=== PATIENT | female | born 1970 | race Two or more races ===

== ENCOUNTER 2018-07-10 06:08 | Observation (INO) | payer MEDICAID ==
[~2018-07-10] VITALS: Ht 157.5 cm; Wt 85.6 kg
[2018-07-10] MEDS ORDERED: IBUPROFEN (06:15)
[2018-07-10] MEDS ORDERED: TYLENOL (06:15)
[2018-07-10] MEDS ORDERED: GABA300C10 PO (06:15)
[2018-07-10] MEDS ORDERED: PROMETHAZINE 25 MG/ML, 1ML IM ONE (06:30)
[2018-07-10] MEDS ORDERED: HYDROmorphone 2 MG/ML, 1ML IV ONE (06:30)
[2018-07-10] MEDS ORDERED: PROMETHAZINE 25 MG/ML, 1ML ONE (06:41)
[2018-07-10] MEDS ORDERED: HYDROmorphone 2 MG/ML, 1ML ONE (06:41)
[2018-07-10 06:48] LABS: BASOPHILS # (AUTO) 0.05 x10^3/uL (0-0.1); BASOPHILS % (AUTO) 1 % (0-1); EOSINOPHILS # (AUTO) 0.03 x10^3/uL (0-0.4); EOSINOPHILS % (AUTO) 0 % (1-7); LYMPHOCYTES # (AUTO) 1.98 x10^3/uL (1-3.4); LYMPHOCYTES % (AUTO) 21 % (22-44); MD NO; MEAN CORPUSCULAR HEMOGLOBIN 29.1 pg (27.0-34.8); MEAN CORPUSCULAR HGB CONC 33.7 g/dL (32.4-35.8); MEAN CORPUSCULAR VOLUME 86.6 fL (80-100); MEAN PLATELET VOLUME 9.2 fL (7.4-10.4); MONOCYTES # (AUTO) 0.38 x10^3/uL (0.2-0.8); MONOCYTES % (AUTO) 4 % (2-9); NEUTROPHILS # (AUTO) 6.86 x10^3/uL (1.8-6.8); NEUTROPHILS % (AUTO) 74 % (42-75); PLATELET COUNT 222 x10^3/uL (130-400); RED CELL DISTRIBUTION WIDTH 12.9 % (9.6-15.2)
[2018-07-10 06:59] LABS: ANION GAP 9 mmol/L (5-15); CALCIUM 8.7 mg/dL (8.5-10.1); CHLORIDE 109 mmol/L (98-107); CREATININE 0.75 mg/dL (0.55-1.02)
[2018-07-10] MEDS ORDERED: KETOROLAC 30 MG/1 ML IVPush ONE (08:30)
[2018-07-10] MEDS ORDERED: SODIUM CHLORIDE 0.9% 1,000ML IVBOLUS ONE (08:30)
[2018-07-10] MEDS ORDERED: KETOROLAC 30 MG/1 ML ONE (08:31)
[2018-07-10] MEDS ORDERED: MECLIZINE CHEWABLE 25 MG TAB ONE (10:38)
[2018-07-10] MEDS ORDERED: MECLIZINE CHEWABLE 25 MG TAB PO ONE (11:00)
[2018-07-10] MEDS ORDERED: ONDANSETRON 2MG/ML, 2ML IVPush PRN (13:00)
[2018-07-10] MEDS ORDERED: ENALAPRILAT 1.25 MG/ML, 2ML IVPush PRN (13:00)
[2018-07-10] MEDS ORDERED: BUTALB/APAP/CAFFEINE 50MG/325MG/40MG PO PRN (13:00)
[2018-07-10 13:45] LABS: HCT (SEDRATE) 41.5 % (34.6-47.8)
[2018-07-10] MEDS ORDERED: GADOBUTROL 10 MMOL/10 ML PFS ONE (15:17)
[2018-07-10] MEDS: HYDROmorphone 2 MG/ML, 1ML IVPush PRN ×2 (16:06→20:34)
[2018-07-10] MEDS: SODIUM CHLORIDE 0.9% 1,000 ML IV SCH (16:08)
[2018-07-10 16:26] VITALS: BP 104/68
[2018-07-11] VITALS (8 sets, daily range): BP systolic 88–115; BP diastolic 55–69
[2018-07-11] MEDS: OXYcodone IR 5MG TABLET PO PRN ×4 (03:03→21:05)
[2018-07-11] MEDS: SODIUM CHLORIDE 0.9% 1,000 ML IV SCH ×2 (04:44→17:53)
[2018-07-11] MEDS: HYDROmorphone 2 MG/ML, 1ML IVPush PRN (05:05)
[2018-07-11 05:51] LABS: BASOPHILS # (AUTO) 0.02 x10^3/uL (0-0.1); BASOPHILS % (AUTO) 0 % (0-1); EOSINOPHILS # (AUTO) 0.01 x10^3/uL (0-0.4); EOSINOPHILS % (AUTO) 0 % (1-7); LYMPHOCYTES % (AUTO) 23 % (22-44); MD NO; MEAN CORPUSCULAR HEMOGLOBIN 29.3 pg (27.0-34.8); MEAN CORPUSCULAR HGB CONC 33.7 g/dL (32.4-35.8); MEAN CORPUSCULAR VOLUME 87.1 fL (80-100); MEAN PLATELET VOLUME 9.2 fL (7.4-10.4); MONOCYTES % (AUTO) 5 % (2-9); NEUTROPHILS # (AUTO) 6.18 x10^3/uL (1.8-6.8); NEUTROPHILS % (AUTO) 72 % (42-75); PLATELET COUNT 198 x10^3/uL (130-400); RED BLOOD COUNT 4.27 x10^6/uL (3.82-5.3); RED CELL DISTRIBUTION WIDTH 12.6 % (9.6-15.2)
[2018-07-11 06:02] LABS: CHLORIDE 111 mmol/L (98-107)
[2018-07-11 06:11] LABS: ALANINE AMINOTRANSFERASE 50 U/L (12-78); ALBUMIN 3.1 g/dL (3.4-5.0); ALKALINE PHOSPHATASE 129 U/L (45-117); ANION GAP 8 mmol/L (5-15); BILIRUBIN,TOTAL 0.4 mg/dL (0.2-1.0); CALCIUM 8.3 mg/dL (8.5-10.1); CREATININE 0.63 mg/dL (0.55-1.02); TOTAL PROTEIN 6.8 g/dL (6.4-8.2)
[2018-07-11] MEDS: GABAPENTIN 300 MG CAPSULE PO PRN ×2 (08:23→21:04)
[2018-07-11] MEDS: LIDODERM 5% PATCH TD PRN ×2 (10:06→11:46)
[2018-07-11] MEDS ORDERED: OMNIPAQUE 350 MG/ML, 100ML BOTTLE ONE (15:03)
[2018-07-11] MEDS ORDERED: SODIUM CHLORIDE 0.9%, 500ML IVBOLUS ONE (18:30)
[2018-07-11] MEDS: KETOROLAC 30 MG/1 ML IVPush PRN (18:43)
[2018-07-12 00:28] VITALS: BP 105/63
[2018-07-12] MEDS: KETOROLAC 30 MG/1 ML IVPush PRN (06:51)
[2018-07-12 07:00] VITALS: BP 115/71
[2018-07-12] MEDS: OXYcodone IR 5MG TABLET PO PRN ×5 (08:17→22:17)
[2018-07-12] MEDS: ACETAMINOPHEN 325 MG TABLET PO PRN ×4 (08:18→22:17)
[2018-07-12] MEDS: SODIUM CHLORIDE 0.9% 1,000 ML IV SCH ×2 (08:20→20:31)
[2018-07-12] MEDS ORDERED: POLYETHYLENE GLYCOL 17 GM PACKET PO PRN (09:30)
[2018-07-12] MEDS: DOCUSATE 100 MG CAPSULE PO SCH ×2 (10:18→21:39)
[2018-07-12] MEDS: GABAPENTIN 300 MG CAPSULE PO PRN (10:19)
[2018-07-12] MEDS: LIDODERM 5% PATCH TD PRN (10:19)
[2018-07-12 10:25] VITALS: BP 108/61
[2018-07-12] MEDS: HYDROmorphone 2 MG/ML, 1ML IVPush PRN (10:42)
[2018-07-12 13:55] VITALS: BP 91/54
[2018-07-12 21:03] VITALS: BP 114/66
[2018-07-13 02:35] VITALS: BP 105/63
[2018-07-13] MEDS: ACETAMINOPHEN 325 MG TABLET PO PRN ×5 (05:21→21:25)
[2018-07-13] MEDS: OXYcodone IR 5MG TABLET PO PRN ×5 (05:21→21:25)
[2018-07-13 06:58] VITALS: BP 99/62
[2018-07-13] MEDS: DOCUSATE 100 MG CAPSULE PO SCH ×2 (09:04→20:32)
[2018-07-13] MEDS: KETOROLAC 30 MG/1 ML IVPush PRN (11:18)
[2018-07-13 12:55] VITALS: BP 98/61
[2018-07-13 21:00] VITALS: BP 124/73
[2018-07-14 02:08] VITALS: BP 109/71
[2018-07-14] MEDS: OXYcodone IR 5MG TABLET PO PRN ×4 (02:21→16:19)
[2018-07-14] MEDS: ACETAMINOPHEN 325 MG TABLET PO PRN ×4 (02:22→16:19)
[2018-07-14 08:05] VITALS: BP 107/69
[2018-07-14] MEDS: DOCUSATE 100 MG CAPSULE PO SCH (09:36)
[2018-07-14] MEDS: GABAPENTIN 300 MG CAPSULE PO PRN (09:36)
[2018-07-14] MEDS ORDERED: ACET325T14 PO (11:17)
[2018-07-14] MEDS ORDERED: GABA300C10 PO (11:17)
[2018-07-14] MEDS ORDERED: LIDO700A20 TD (11:17)
[2018-07-14] MEDS ORDERED: ENOXAPARIN 40 MG/0.4 ML SQ SCH (13:00)
[2018-07-14 13:03] VITALS: BP 116/69
[2018-07-14 17:24] VITALS: BP 107/74
== END 2018-07-14 18:01 ==
LOC: ED 07:44 → INTOOBSV 12:03 → EDIP 12:03 → 4NOR 13:25
PROVIDERS: ADMIT Hospitalist; ATTEND Hospitalist
DX: R51 Headache (principal); G89.29 Other chronic pain; G96.0 Cerebrospinal fluid leak; R73.9 Hyperglycemia, unspecified
CPT/HCPCS: 36415; 70450; 70496; 70498; 70551; 72141; 72157; 72158; 80048; 80053; 82962; 85025; 85651; 96372; 96374; 96375; 96376; 97162; 97166; 99285; A9585; G0378; G8978; G8979; G8980; J1170; J1885; J2550; J7030; J7040; Q9967

== ENCOUNTER 2019-02-09 01:07 | Emergency (ER) | payer MEDICAID ==
[~2019-02-09] VITALS: Ht 160 cm; Wt 85.0 kg
[~2019-02-09 01:07] MED LIST: ACET325T14 PO; GABA300C10 PO; IBUPROFEN; LIDO700A20 TD; TYLENOL
--- NOTE | 2019-02-09 01:18 | NUR ---
pt was in rm via w/c given gown for changing at bed side pt stated her left whole body is hurting hx of back surgery vss stable
[2019-02-09 01:38] VITALS: BP 116/59
[2019-02-09] MEDS ORDERED: GABA300C10 PO (01:38)
[2019-02-09] MEDS ORDERED: SODIUM CHLORIDE FLUSH 10ML SYR IVF ONE (02:00)
[2019-02-09] MEDS ORDERED: ONDANSETRON 2MG/ML, 2ML IVPush ONE (02:00)
[2019-02-09] MEDS ORDERED: HYDROmorphone 1 MG/ML, 1ML INJ IV ONE (02:00)
[2019-02-09] MEDS ORDERED: LORazepam 2 MG/ML, 1ML IVPush ONE (02:00)
[2019-02-09] MEDS ORDERED: LORazepam 2 MG/ML, 1ML ONE (02:11)
[2019-02-09] MEDS ORDERED: HYDROmorphone 2 MG/ML, 1ML ONE (02:11)
[2019-02-09] MEDS ORDERED: ONDANSETRON 2MG/ML, 2ML ONE (02:12)
[2019-02-09 02:48] LABS: BASOPHILS # (AUTO) 0.03 x10^3/uL (0-0.1); BASOPHILS % (AUTO) 0 % (0-1); EOSINOPHILS # (AUTO) 0.09 x10^3/uL (0-0.4); EOSINOPHILS % (AUTO) 1 % (1-7); LYMPHOCYTES # (AUTO) 3.82 x10^3/uL (1-3.4); LYMPHOCYTES % (AUTO) 46 % (22-44); MD NO; MEAN CORPUSCULAR HEMOGLOBIN 28.9 pg (27.0-34.8); MEAN CORPUSCULAR HGB CONC 32.8 g/dL (32.4-35.8); MEAN PLATELET VOLUME 10.9 fL (7.4-10.4); MONOCYTES # (AUTO) 0.49 x10^3/uL (0.2-0.8); MONOCYTES % (AUTO) 6 % (2-9); NEUTROPHILS # (AUTO) 3.97 x10^3/uL (1.8-6.8); NEUTROPHILS % (AUTO) 47 % (42-75); PLATELET COUNT 177 x10^3/uL (130-400); RED BLOOD COUNT 4.71 x10^6/uL (3.82-5.3); RED CELL DISTRIBUTION WIDTH 12.9 % (9.6-15.2)
[2019-02-09 03:04] LABS: ALANINE AMINOTRANSFERASE 67 U/L (12-78); ALBUMIN 3.5 g/dL (3.4-5.0); ANION GAP 6 mmol/L (5-15); CALCIUM 8.7 mg/dL (8.5-10.1); CHLORIDE 113 mmol/L (98-107); CREATININE 0.82 mg/dL (0.55-1.02)
[2019-02-09 03:08] LABS: ALKALINE PHOSPHATASE 143 U/L (45-117); BILIRUBIN,TOTAL 0.2 mg/dL (0.2-1.0); TOTAL PROTEIN 7.1 g/dL (6.4-8.2); TROPONIN I < 0.015 ng/mL (0.000-0.045)
[2019-02-09] MEDS ORDERED: MORPHINE SULFATE 4 MG/ML, 1ML ONE (03:38)
[2019-02-09 04:35] LABS: MICROSCOPIC AUTO
[2019-02-09 04:37] LABS: CULTURE INDICATED? YES
== END 2019-02-09 05:18 | disposition home or self-care (01) ==
LOC: ED 01:43
DX: G89.29 Other chronic pain (principal); M54.5 Low back pain; M26.622 Arthralgia of left temporomandibular joint; Z88.5 Allergy status to narcotic agent
CPT/HCPCS: 36415; 71045; 80053; 81001; 84484; 85025; 87077; 87086; 93005; 96374; 96375; 99284; J1170; J2060; J2405; 87186